=== PATIENT | female | born 1955 | race Caucasian/White ===

== ENCOUNTER 2022-01-21 11:35 | Emergency (ER) | payer BC ==
[~2022-01-21] VITALS: Ht 149.9 cm; Wt 81.2 kg
[2022-01-21 12:09] VITALS: BP 139/60
[2022-01-21] MEDS ORDERED: KETOROLAC 30 MG/ML VIAL IM ONE (12:55)
[2022-01-21] MEDS ORDERED: IBUP-1842 PO (13:00)
== END 2022-01-21 13:27 | disposition home or self-care (01) ==
LOC: MED 11:35
DX: G44.209 Tension-type headache, unspecified, not intractable (principal); R03.0 Elevated blood-pressure reading, without diagnosis of hypertension; E11.9 Type 2 diabetes mellitus without complications; E78.5 Hyperlipidemia, unspecified; Z79.899 Other long term (current) drug therapy; Z98.890 Other specified postprocedural states
CPT/HCPCS: 96372; 99283; J1885